=== PATIENT | female | born 1960 | race Caucasian/White ===

== ENCOUNTER → 2017-10-06 | Outpatient (CLI) | payer OTHER ==
[~2017-10-06] MED LIST: LOSARTAN POTASS50 MG; VICODIN HP 10-1 EACH PO
--- NOTE | 2017-10-06 10:55 | Diagnostic Imaging Report ---
Left knee MRI without contrast. History: Knee pain. Internal derangement. Decreased range of motion. Pain not responding to conservative management Comparison: None. Technique: Multiplanar multi-sequence MRI of the knee without contrast. Findings: Medial compartment: There is mid substance degeneration of the medial meniscus with mild fraying. No meniscal tear, cartilage abnormality, or MCL tear. Lateral compartment: No meniscal tear or cartilage abnormality. The LCL complex is normal. Intercondylar notch: The ACL and PCL are intact. Patellofemoral compartment: No chondromalacia or patellar dislocation. Extensor mechanism: The quadriceps and patellar tendons are normal. Other findings: There is a joint effusion and synovitis. There is no acute fracture, subluxation or avascular necrosis. IMPRESSION: Mid substance degeneration of the medial meniscus with mild fraying. No meniscal tear, collateral ligament tear or cruciate ligament tear. Signed by: Dr. Ravindra Green M.D. on 10/06/2017 10:51 AM
== END ==
LOC: MRI 09:13
PROVIDERS: ATTEND Specialist
DX: M23.92 Unspecified internal derangement of left knee (principal)

== ENCOUNTER 2018-01-12 11:22 | Emergency (ER) | payer OTHER ==
[~2018-01-12] VITALS: Ht 170.2 cm; Wt 104.3 kg
[2018-01-12] MEDS ORDERED: ONDANSETRON HCL INJ 2 MG/ML VIAL IV STA (11:46)
[2018-01-12] MEDS ORDERED: HYDROMORPHONE 1MG/1ML INJ IV STA (11:46)
[2018-01-12 11:56] LABS: CLARITY,URINE CLOUDY (CLEAR); COLOR,URINE YELLOW (YELLOW)
[2018-01-12 11:57] LABS: BILIRUBIN,URINE NEGATIVE (NEGATIVE); KETONES,URINE NEGATIVE (NEGATIVE); LEUKOCYTE ESTERASE ,URINE 1+ (NEGATIVE); NITRITE,URINE POSITIVE (NEGATIVE); PROTEIN,URINE DIPSTICK NEGATIVE (NEGATIVE); URINE UROBILINOGEN 0.2 mg/dL (0.2 - 1)
[2018-01-12] MEDS ORDERED: HYDROMORPHONE 2MG/ML 2 MG/ML ML IV ONE (12:00)
[2018-01-12 12:06] LABS: BACTERIA,URINE MODERATE /HPF
[2018-01-12 12:07] LABS: EPITHELIAL CELLS,URINE RARE /LPF
[2018-01-12 12:19] LABS: BASOPHILS # (AUTO) 0.1 (0.0-0.1); BASOPHILS % 0.9 % (0.0-1.0); EOSINOPHILS # (AUTO) 0.3 (0.0-0.4); EOSINOPHILS % 5.3 % (0.0-6.0); HEMOGLOBIN 14.1 g/dL (12.0-16.0); LYMPHOCYTES # (AUTO) 2.2 (1.0-3.2); LYMPHOCYTES % 33.8 % (18.0-39.1); MEAN CORPUSCULAR HEMOGLOBIN 29.1 pg (28-32); MEAN CORPUSCULAR HGB CONC 33.6 g/dL (31-35); MEAN CORPUSCULAR VOLUME 86.6 fL (81-99); MONOCYTES # (AUTO) 0.4 (0.2-0.8); MONOCYTES % 6.1 % (4.4-11.3); NEUTROPHILS # (AUTO) 3.4 (2.1-6.9); NEUTROPHILS % 53.3 % (38.7-80.0); PLATELET COUNT 287 x10e3/uL (140-360); RED BLOOD COUNT 4.85 x10e6/uL (3.6-5.1)
[2018-01-12 12:27] LABS: INR 0.88; PROTHROMBIN TIME 12.8 seconds (11.9-14.5)
[2018-01-12 12:28] LABS: PARTIAL THROMBOPLASTIN TIME 29.2 seconds (23.8-35.5)
[2018-01-12] MEDS ORDERED: CEFTRIAXONE SOD 1 GM VIAL IV SCH (12:30)
[2018-01-12 12:34] LABS: ALANINE AMINOTRANSFERASE 20 IU/L (0-55); ALBUMIN 4.4 g/dL (3.5-5.0); ALBUMIN/GLOBULIN RATIO 1.5 (0.8-2.0); ALKALINE PHOSPHATASE 89 IU/L (40-150); ANION GAP 14.3 mmol/L (8-16); BLOOD UREA NITROGEN 19 mg/dL (7-26); BUN/CREATININE RATIO 27 (6-25); CARBON DIOXIDE 25 mmol/L (22-29); CHLORIDE 105 mmol/L (98-107); EST GLOMERULAR FILTRATION RATE > 60 ML/MIN (60-); GLUCOSE 92 mg/dL (74-118); POTASSIUM 4.3 mmol/L (3.5-5.1); SODIUM 140 mmol/L (136-145)
--- NOTE | 2018-01-12 12:37 | Diagnostic Imaging Report ---
Examination: Single AP view of the chest. COMPARISON: None. INDICATION: Preoperative evaluation, knee pain DISCUSSION: Lines/tubes: Sternotomy wires. Lungs: The lungs are well inflated and clear. No pneumonia or pulmonary edema. Pleura: No pleural effusion or pneumothorax. Heart and mediastinum: The heart and the mediastinum are unremarkable. Bones and soft tissues: No acute bony abnormalities. IMPRESSION: 1. No acute cardiopulmonary abnormalities. Signed by: Dr. Deshaun Retana M.D. on 01/12/2018 12:34 PM
--- NOTE | 2018-01-12 13:32 | Diagnostic Imaging Report ---
TECHNIQUE: Computed tomography imaging of the left HIP was performed WITHOUT injected contrast. HISTORY: hip pain COMPARISON: None available. FINDINGS: Bone: No focal or infiltrative bone marrow replacing abnormality. No osteonecrosis or acute fracture. Hip joint: Joint space narrowing with superior migration. Osteophytosis. Juxta-articular erosion involving the superior acetabulum. Soft tissues: Otherwise unremarkable. IMPRESSION: No displaced fracture. Advanced left hip degenerative arthrosis with possible superimposed gout. Signed by: Dr. Deshaun Retana M.D. on 01/12/2018 1:29 PM
[2018-01-12 13:58] VITALS: BP 123/77
== END 2018-01-12 14:25 | disposition home or self-care (01) ==
LOC: ER 11:22
DX: S70.02XA Contusion of left hip, initial encounter (principal); W01.0XXA Fall on same level from slipping, tripping and stumbling without subsequent striking against object, initial encounter; Y93.01 Activity, walking, marching and hiking; Y92.028 Other place in mobile home as the place of occurrence of the external cause
CPT/HCPCS: 36415; 71045; 73700; 80053; 81001; 85025; 85610; 85730; 87086; 87186; 93005; 99284; J0696; J1170; J2405

== ENCOUNTER 2018-02-20 06:48 | Inpatient (IN) | payer OTHER ==
[2018-02-17 09:21] LABS: BASOPHILS # (AUTO) 0.1 (0.0-0.1); BASOPHILS % 0.9 % (0.0-1.0); EOSINOPHILS # (AUTO) 0.3 (0.0-0.4); EOSINOPHILS % 4.3 % (0.0-6.0); HEMATOCRIT 41.5 % (34.2-44.1); HEMOGLOBIN 13.7 g/dL (12.0-16.0); LYMPHOCYTES # (AUTO) 1.9 (1.0-3.2); LYMPHOCYTES % 29.5 % (18.0-39.1); MEAN CORPUSCULAR HEMOGLOBIN 28.7 pg (28-32); MONOCYTES # (AUTO) 0.5 (0.2-0.8); MONOCYTES % 7.3 % (4.4-11.3); NEUTROPHILS # (AUTO) 3.7 (2.1-6.9); NEUTROPHILS % 57.7 % (38.7-80.0); PLATELET COUNT 276 x10e3/uL (140-360); RED BLOOD COUNT 4.77 x10e6/uL (3.6-5.1)
[~2018-02-20] VITALS: Ht 167.6 cm; Wt 104.9 kg
[~2018-02-20 06:48] MED LIST changes: +CLOPIDOGREL75 MG PO; +LISINOPRIL10 MG PO; +METOPROLOL PO; +NAPROXEN500 MG PO; +OTEZLA PO; +PRAVASTATIN SOD40 MG PO; +ROPIVACAINE 246.25 MG, EPINEPHRINE HCL 1:1000 0.5 MG, CLONIDINE HCL 0.08 MG, KETOROLAC ... INJ ONE; +[UNRECOGNIZED DRUG - OTHER]
--- OUTSIDE RECORDS SUMMARY | 2018-02-20 06:51 | XMS REPORT ---
[facility] Address Unknown Phone Unavailable Care Team Providers Care Exercise Equipment Repair Technician Name Role Phone Darion MELENDEZ Unavailable Unavailable WALLACE CHU Unavailable Unavailable Payers Payer Name Policy Type Policy Number Effective Date Expiration Date Problems This patient has no known problems. Allergies, Adverse Reactions, Alerts Allergy Name Allergy Type Status Severity Reaction(s) Onset Date Inactive Date Treating Clinician Comments codeine DA Active U 2017-02-22 00:00:00 Medications This patient has no known medications. Results Test Description Test Time Test Comments Text Results Atomic Results Result Comments CT HIP LEFT WO 2018-01-12 13:20:00 [place] [address] Patient Name: MEÑO FOLEY MR #: [id number] : 1960 Age/Sex: 57/F Req #: [id number] Adm Physician: Ordered by: EDITH MELENDEZ MD Report #: [id number] Location: ER Room/Bed: Procedure: [id number] CT/CT HIP LEFT WO Exam Date: Exam Time: REPORT STATUS: Signed TECHNIQUE: Computed tomography imaging of the left HIP was performed WITHOUT injected contrast. HISTORY: hip pain COMPARISON: None available. FINDINGS: Bone: No focal or infiltrative bone marrow replacing abnormality. No osteonecrosis or acute fracture. Hip joint: Joint space narrowing with superior migration. Osteophytosis. Juxta-articular erosion involving the superior acetabulum. Soft tissues: Otherwise unremarkable. IMPRESSION: No displaced fracture. Advanced left hip degenerative arthrosis with possible superimposed gout. Signed by: Dr. Nir Blevins M.D. on 01/12/2018 1:29 PM Dictated By: NIR BLEVINS MD 1329 Transcribed By: KEILY on 01/12/18 1329 COPY TO: EDITH MELENDEZ MD CHEST SINGLE (PORTABLE) 2018-01-12 12:32:00 [place] [address] Patient Name: MEÑO FOLEY MR #: [id number] : 1960 Age/Sex: 57/F Req #: [id number] Adm Physician: Ordered by: EDITH MELENDEZ MD Report #: [id number] Location: ER Room/Bed: Procedure: [id number] DX/CHEST SINGLE (PORTABLE) Exam Date: Exam Time: REPORT STATUS: Signed Examination: Single AP view of the chest. COMPARISON: None. INDICATION: Preoperative evaluation, knee pain DISCUSSION: Lines/tubes: Sternotomy wires. Lungs: The lungs are well inflated and clear. No pneumonia or pulmonary edema. Pleura: No pleural effusion or pneumothorax. Heart and mediastinum: The heart and the mediastinum are unremarkable. Bones and soft tissues: No acute bony abnormalities. IMPRESSION: 1. No acute cardiopulmonary abnormalities. Signed by: Dr. Nir Blevins M.D. on 01/12/2018 12:34 PM Dictated By: NIR BLEVINS MD 1234 Transcribed By: KEILY on 01/12/18 1234 COPY TO: EDITH MELENDEZ MD MRI KNEE LEFT WO 2017 10:49:00 [place] [address] Patient Name: MEÑO FOLEY MR #: [id number] : 1960 Age/Sex: 57/F Req #: [id number] Adm Physician: Ordered by: WALLACE CHU MD Report #: [id number] Location: MRI Room/Bed: Procedure: [id number] MRI/MRI KNEE LEFT WO Exam Date: Exam Time: REPORT STATUS: Signed Left knee MRI without contrast. History: Knee pain. Internal derangement. Decreased range of motion. Pain not responding to conservative management Comparison: None. Technique: Multiplanar multi-sequence MRI of the knee without contrast. Findings: Medial compartment: There is mid substance degeneration of the medial meniscus with mild fraying. No meniscal tear, cartilage abnormality, or MCL tear. Lateral compartment: No meniscal tear or cartilage abnormality. The LCL complex is normal. Intercondylar notch: The ACL and PCL are intact. Patellofemoral compartment: No chondromalacia or patellar dislocation. Extensor mechanism: The quadriceps and patellar tendons are normal. Other findings: There is a joint effusion and synovitis. There is no acute fracture, subluxation or avascular necrosis. IMPRESSION: Mid substance degeneration of the medial meniscus with mild fraying. No meniscal tear, collateral ligament tear or cruciate ligament tear. Signed by: Dr. Ravindra Green M.D. on 2017 10:51 AM Dictated By: RAVINDRA GREEN MD, MD 1051 Transcribed By: KEILY on 10/06/17 105 COPY TO: WALLACE CHU MD
[2018-02-20] MEDS ORDERED: DEXAMETHASONE SOD PHOS 10 MG/1 ML VIAL ONE (07:05)
[2018-02-20] MEDS ORDERED: GABAPENTIN 300 MG CAP ONE (07:05)
[2018-02-20] MEDS ORDERED: CEFAZOLIN SOD 2 GM/D5W 50ML 50 ML IV ONE (07:05)
[2018-02-20] MEDS ORDERED: CELECOXIB 200 MG CAP ONE (07:22)
[2018-02-20] MEDS ORDERED: TRELEGY ELLIPTA IH ×2 (07:49→07:51)
--- NOTE | 2018-02-20 08:17 | Diagnostic Imaging Report ---
PROCEDURE: Frontal and lateral views of the chest. COMPARISON: Chest radiograph 01/12/18. INDICATIONS: PREOPERATIVE CHEST XRAY FOR HIP SURGERY FINDINGS: Lines/tubes: None. Lungs: The lungs are well inflated and clear. There is no evidence of pneumonia or pulmonary edema. Pleura: There is no pleural effusion or pneumothorax. Heart and mediastinum: The cardiomediastinal silhouette is unremarkable. Status post CABG. Bones: No acute bony abnormality. Status post median sternotomy. IMPRESSION: No acute radiographic abnormality. Dictated by: ÁNGEL AREVALO M.D. on 02/20/2018 at 8:26 Electronically approved by: ÁNGEL AREVALO M.D. on 02/20/2018 at 8:26
[2018-02-20] MEDS ORDERED: BUPIVACAINE 7.5MG/ML /DEXTROSE 82.5MG/ML 2 ML AMP INJ ONE (08:50)
[2018-02-20] MEDS ORDERED: TRANEXAMIC ACID 1,000 MG/10 ML ML ONE (08:59)
[2018-02-20] MEDS ORDERED: BACITRACIN 50,000 UNIT VIAL ONE (09:00)
[2018-02-20] MEDS ORDERED: SODIUM CHLORIDE 0.9% 1000ML 1,000 ML IV SCH (11:14)
[2018-02-20] MEDS ORDERED: KETOROLAC TROMETHAMINE 30 MG/ML VIAL IV PRN (11:15)
[2018-02-20] MEDS ORDERED: ACETAMINOPHEN 650 MG SUPP PR PRN (11:15)
[2018-02-20] MEDS ORDERED: DIPHENHYDRAMINE HCL INJ 50 MG/ML VIAL IM/IV PRN (11:15)
[2018-02-20] MEDS ORDERED: ONDANSETRON HCL INJ 2 MG/ML VIAL IV PRN (11:15)
[2018-02-20] MEDS ORDERED: DOCUSATE SODIUM 100 MG CAP PO PRN (11:15)
[2018-02-20] MEDS ORDERED: HYDROCODONE/APAP 5MG-325MG TAB PO PRN (11:15)
[2018-02-20] MEDS ORDERED: PROMETHAZINE HCL (IM) 25 MG/ML VIAL IM PRN (11:15)
[2018-02-20] MEDS ORDERED: FENTANYL CITRATE/PF 100MCG/2 ML INJ ONE ×2 (11:54→18:30)
--- NOTE | 2018-02-20 12:19 | Operative Report ---
DATE OF PROCEDURE: February 20, 2018 INSPECTOR INSULATION: Sarath Chun PA-C The patient was brought to the operating room for induction of anesthesia. Throughout this case, my PA's assistance was necessary for retraction of soft tissue and positioning of the extremity. This allows for efficient and technically successful execution of the operation and is considered medically necessary. PREOPERATIVE DIAGNOSIS: Osteoarthritis left hip. POSTOPERATIVE DIAGNOSIS: Osteoarthritis left hip. PROCEDURE: Left total hip arthroplasty. INDICATIONS: The patient is a 57-year-old lady who complains of severe pain in her left hip. Clinic exam and x-rays are consistent with osteoarthritis of her left hip. She has failed extensive conservative management. She would like to proceed with a left total hip replacement. The risks and benefits have been discussed. She states she understands and wishes to proceed. The added challenges and potential for risk due to her BMI of nearly 37 have been explained. She states she understands. DESCRIPTION OF PROCEDURE: The patient was brought to the operating room and given a spinal anesthetic. She was then also given a general anesthetic and positioned in the right lateral decubitus position. Her left hip was prepped and draped in a sterile manner. She received prophylactic antibiotics and tranexamic acid in the holding area. A preoperative timeout was performed. A posterior approach was made to the left hip. Hemostasis was obtained with electrocautery. Abundant subcutaneous fatty tissue was encountered. Exposure was challenging due to her contracture, obesity, and relatively young muscle tone. The posterior capsule was exposed and released. The hip was dislocated, and an oscillating saw was used to resect the femoral head. Advanced wear of the articular cartilage at the left hip was noted. Acetabular retractors were placed. Additional soft-tissue releases were necessary to gain appropriate visualization. The labral remnant was excised. The true floor of the acetabulum was established with a 46 mm reamer. The socket was then sequentially reamed up to 51 mm. A [employer] 52 mm outer diameter socket was then impacted into place. Fixation was augmented with a single 20 mm screw. Dense bone was encountered. Excellent fixation was obtained. The hip was thoroughly irrigated several times with a shower-tip pulsatile lavage. A portion of a 100 mL premixed pericapsular injection was placed around the acetabular tissue. A highly crosslinked polyethylene liner with a 36 mm inner diameter was then seated. Care was taken to make sure that there was no evidence of soft-tissue interposition. The socket was packed with a moistly soaked lap sponge. The proximal femur was exposed. A box cutting osteotome and taper pin reamer were used to establish entry to the femoral canal. The [employer] Taperloc broaches were then impacted. A size 7 stem had good canal fill and stability for trial reductions. A standard 36 mm head was felt to provide appropriate restorationist of limb length and good stability. The trial implants were removed. The remainder of the pericapsular injection was placed into the more superficial soft tissue. The hip was further irrigated with a shower-tip pulsatile lavage. The implants were seated, and a final reduction was performed. The hip was put through an arc of motion and noted to have excellent stability. The posterior capsule was repaired with interrupted number 2 Ethibond. The proximal tensor fascia and gluteal fascia were closed with interrupted number 2 Ethibond. The skin was closed with subcuticular Vicryl and bailey. A sterile Aquacel bandage was placed. The patient was returned to the supine position and extubated. She was transferred to the recovery room in stable condition. Blood loss was approximately 100 mL. All needle and sponge counts were correct. Job#: [id number] FAMILIA
[2018-02-20] MEDS ORDERED: ACETAMINOPHEN 1000 MG/100 ML 100 ML IV ONE (13:19)
[2018-02-20] MEDS: ACETAMINOPHEN 1000 MG/100 ML IV SCH ×2 (13:19→17:38)
[2018-02-20] MEDS ORDERED: CEFAZOLIN SOD 1 GM/D5W 50ML 50 ML IV SCH (14:00)
--- NOTE | 2018-02-20 14:13 | Diagnostic Imaging Report ---
Exam: AP pelvis one view History: Pain Comparison: None. Findings: See impression Impression: Postsurgical change for left total hip arthroplasty. Hardware intact. No complication. Signed by: Dr. Deshaun Retana M.D. on 02/20/2018 2:10 PM
[2018-02-20 14:58] VITALS: BP 138/78
[2018-02-20] MEDS: HYDROCODONE/APAP 7.5MG-325MG 1 EA TAB PO PRN ×2 (15:42→21:36)
[2018-02-20 16:06] VITALS: BP 105/60
[2018-02-20 16:43] VITALS: BP 105/60
[2018-02-20] MEDS ORDERED: CELECOXIB 100 MG CAP PO SCH (17:00)
[2018-02-20] MEDS: CEFAZOLIN SOD 1 GM VIAL IV SCH (17:38)
[2018-02-20] MEDS: CELECOXIB 200 MG CAP PO SCH (17:38)
[2018-02-20] MEDS: ASPIRIN 325 MG TAB PO SCH (17:38)
[2018-02-20] MEDS ORDERED: MIDAZOLAM HCL 2 MG/2 ML VIAL ONE (18:30)
[2018-02-20] MEDS ORDERED: ROCURONIUM BROMIDE 10 MG/ML 5ML VIAL ONE (19:46)
[2018-02-20] MEDS ORDERED: LIDOCAINE HCL 2% LOCAL INJ 5 ML SDV VIAL INJ ONE (19:46)
[2018-02-20] MEDS ORDERED: PROPOFOL IV EMULSION 10 MG/ML 20 ML VIAL ONE (19:46)
[2018-02-20] MEDS ORDERED: EPHEDRINE SULFATE INJ 50 MG/10 ML SYR ONE (19:46)
[2018-02-20] MEDS ORDERED: SEVOFLURANE INHAL SOLN 250 ML PEN BTL ONE (19:46)
[2018-02-20] MEDS ORDERED: VASOPRESSIN INJ 20 UNIT/ML VIAL ONE (19:46)
[2018-02-20 20:00] VITALS: BP 108/56
[2018-02-20 20:05] VITALS: BP 108/56
[2018-02-20] MEDS ORDERED: ZOLPIDEM TARTRATE 5 MG TAB PO PRN (21:00)
[2018-02-20] MEDS ORDERED: SIMVASTATIN 20 MG TAB PO SCH (21:00)
[2018-02-21] VITALS: BP 127/67
[2018-02-21] MEDS: HYDROCODONE/APAP 7.5MG-325MG 1 EA TAB PO PRN ×4 (01:47→13:03)
[2018-02-21] MEDS: CEFAZOLIN SOD 1 GM VIAL IV SCH ×2 (02:18→09:21)
[2018-02-21 04:00] VITALS: BP 115/64
[2018-02-21 05:10] LABS: HEMATOCRIT 33.1 % (34.2-44.1); HEMOGLOBIN 10.9 g/dL (12.0-16.0)
[2018-02-21] MEDS: ACETAMINOPHEN 1000 MG/100 ML IV SCH ×2 (06:00)
[2018-02-21 08:38] VITALS: BP 126/62
[2018-02-21] MEDS ORDERED: METOPROLOL TARTRATE 25 MG TAB PO SCH (09:00)
[2018-02-21] MEDS ORDERED: NON-FORMULARY MEDICATION ([Otezla] 30 MG) PO SCH (09:00)
[2018-02-21] MEDS ORDERED: LISINOPRIL 20 MG TAB PO SCH (09:00)
[2018-02-21 09:21] VITALS: BP 126/62
[2018-02-21] MEDS: CELECOXIB 200 MG CAP PO SCH (09:21)
[2018-02-21] MEDS: ASPIRIN 325 MG TAB PO SCH (09:21)
[2018-02-21] MEDS ORDERED: ACETAMINOPHEN 1000 MG/100 ML IV PRN (11:15)
[2018-02-21 12:41] VITALS: BP 96/55
--- NOTE | 2018-04-16 12:06 | Consultation ---
DATE OF CONSULT: February 21, 2018 REASON FOR CONSULT: Postop medical management. HISTORY OF PRESENT ILLNESS: Patient is a 57-year-old status post left hip arthroplasty, is doing well postoperatively with good pain control. REVIEW OF SYSTEMS: Denies any fever, chills, chest pain, nausea, vomiting, headache, shortness of breath, or dizziness on review of systems. PAST MEDICAL HISTORY: Hypertension and hyperlipidemia. MEDICATIONS: See MAR. ALLERGIES: CODEINE. SOCIAL HISTORY: Nonsmoker, nondrinker. FAMILY HISTORY: Noncontributory. PHYSICAL EXAMINATION VITALS: Temperature 98.0, pulse 73, blood pressure 127/67, and sats 95%. GENERAL: No apparent distress. NECK: Supple. No lymphadenopathy. LUNGS: Clear to auscultation bilaterally. CARDIOVASCULAR: Regular rate and rhythm. ABDOMEN: Good bowel sounds. Soft and nontender. EXTREMITIES: No clubbing or cyanosis. NEUROLOGIC: Nonfocal. ASSESSMENT AND PLAN 1. Anemia. Check a CBC. 2. Hip pain. Continue with physical therapy. 3. Hypertension. Continue with her lisinopril and metoprolol. 4. Hyperlipidemia. Continue with her simvastatin. Please see hospital chart for full details. Job#: [id number] ISAIAS
== END 2018-02-21 14:58 | disposition home health service (06) | DRG 470 ==
LOC: OR 06:48 → PACU V 11:16 → MED/SURG 15:01
PROVIDERS: ADMIT Specialist; ATTEND Specialist
PROC: 0SRB02A Replacement of Left Hip Joint with Metal on Polyethylene Synthetic Substitute, Uncemented, Open Approach (ICD-10-PCS; principal; 2018-02-20 09:00)
DX: M16.12 Unilateral primary osteoarthritis, left hip (principal); I25.10 Atherosclerotic heart disease of native coronary artery without angina pectoris; Z95.1 Presence of aortocoronary bypass graft; D64.9 Anemia, unspecified; I10 Essential (primary) hypertension; E78.5 Hyperlipidemia, unspecified
CPT/HCPCS: 36415; 71046; 72170; 85014; 85018; 85025; 86850; 86900; 86920; 93005; C1713; J0171; J0690; J1100; J1885; J2001; J2250; J2795; J7030

== ENCOUNTER 2020-09-04 03:51 | Emergency (ER) | payer OTHER ==
[~2020-09-04] VITALS: Ht 167.6 cm; Wt 104.8 kg
[~2020-09-04 03:51] MED LIST changes: -ROPIVACAINE 246.25 MG, EPINEPHRINE HCL 1:1000 0.5 MG, CLONIDINE HCL 0.08 MG, KETOROLAC ... INJ ONE; +TRELEGY ELLIPTA IH
[2020-09-04] MEDS ORDERED: HYDROCODONE/APAP 10MG-325MG TAB PO ONE (04:00)
[2020-09-04] MEDS ORDERED: HYDROCODONE/APAP 10MG-325MG TAB ONE (04:09)
[2020-09-04 05:05] VITALS: BP 156/87
[2020-09-04] MEDS ORDERED: HYDROCODON-ACE1 EAC9 PO (05:06)
[2020-09-04] MEDS ORDERED: NAPROSYN500 MG PO (05:06)
[2020-09-04] MEDS ORDERED: CYCLOBENZAPRINE5 MG PO (05:06)
== END 2020-09-04 05:23 | disposition home or self-care (01) ==
LOC: ER 04:01
DX: M25.552 Pain in left hip (principal); M54.5 Low back pain; I10 Essential (primary) hypertension; J44.9 Chronic obstructive pulmonary disease, unspecified; J45.909 Unspecified asthma, uncomplicated; I25.2 Old myocardial infarction; Z95.1 Presence of aortocoronary bypass graft
CPT/HCPCS: 72100; 99283